=== PATIENT | female | born 1985 | race Caucasian/White ===

== ENCOUNTER 2018-08-04 19:57 | Emergency (ER) | payer OTHER ==
[2018-08-04 20:01] VITALS: BP 158/87; PULSE 66; TEMP 99.1; BMI 51.0
--- NOTE | 2018-08-04 20:03 | PDOC ---
Rapid Medical Evaluation Time Seen by Provider: 08/04/18 19:58 Medical Evaluation: Allergies Allergy/AdvReac Type Severity Reaction Status Date / Time No Known Drug Allergies Allergy Verified 03/07/14 11:42 08/04/18 19:58 Pt has pain in her stomach, mostly in the center. Admits to nausea. Pt has appointment with Dr. Strong for cervix cancer removal on Exam: TTP of the epigastric region Orders: Labs, IV Pt to proceed to ED for further evaluation Discharge Disposition - Diagnosis Abdominal pain - Referrals - Patient Instructions - Post Discharge Activity
[2018-08-04 20:38] LABS: BASO % 0.5 % (0-2.0); EOS % 1.7 % (0-4.5); HEMATOCRIT 38.4 % (32.4-45.2); LYMPH % 30.2 % (8-40); MCH 29.2 pg (25.7-33.7); MCHC 33.7 g/dl (32.0-36.0); MEAN CELL VOLUME 86.8 fl (80-96); MONO % 6.9 % (3.8-10.2); NEUT % 60.7 % (42.8-82.8); PLATELET COUNT 228 K/MM3 (134-434); RBC 4.43 M/mm3 (3.60-5.2); RDW 13.8 % (11.6-15.6); WHITE BLOOD COUNT 6.5 K/mm3 (4.0-10.0)
[2018-08-04] MEDS ORDERED: MAG HYDROX/AL HYDROX/SIMETH -MYLANTA- ORAL SUSPENSION PO ONE (20:39)
[2018-08-04] MEDS ORDERED: FAMOTIDINE 20 MG/50 ML IVPB 20 MG/50 ML MG IVPB ONE ×2 (20:39→21:15)
[2018-08-04] MEDS ORDERED: SODIUM CHLORIDE 1,000 ML IV STA (20:39)
[2018-08-04 20:43] LABS: URINE APPEARANCE CLEAR; URINE BILIRUBIN NEGATIVE (<2.0 mg/dL); URINE COLOR LTYELLOW; URINE GLUCOSE (UA) NEGATIVE (NEGATIVE); URINE KETONE NEGATIVE (NEGATIVE); URINE NITRITE NEGATIVE (NEGATIVE); URINE PROTEIN NEGATIVE (NEGATIVE); URINE UROBILINOGEN NEGATIVE mg/dL (0.2-1.0)
[2018-08-04 20:45] LABS: HCG,QUALITATIVE URINE Negative
--- NOTE | 2018-08-04 20:45 | PDOC ---
Attending Attestation - Resident Resident Name: Lalit Sweet - ED Attending Attestation I have performed the following: I have examined & evaluated the patient, The case was reviewed & discussed with the resident, I agree w/resident's findings & plan, Exceptions are as noted - HPI HPI: 08/04/18 21:47 32 yo female p/w epigastric pain 08/04/18 22:47 - Physicial Exam PE: 08/04/18 21:48 obese 32 yo female w epigastric pain head ncat neck supple lungs cta b/l cvs [id number] abd epigastric pain,no guarding,no rebound ext no e/c/c neuro axox3 no gross focal neuro deficits skin warm and dry - Medical Decision Making 08/04/18 21:49 labs reviewed pt;s symptom improved imp gerd plan f/u with PCP
--- NOTE | 2018-08-04 20:54 | PDOC ---
History of Present Illness - General Chief Complaint: Pain Stated Complaint: ABD PAIN Time Seen by Provider: 08/04/18 19:58 History Source: Patient Exam Limitations: No Limitations - History of Present Illness Initial Comments: 08/04/18 20:53 Patient is a 32F with history of cervical dysplasia, s/p cholecystectomy here today complaining of 4 hours of epigastric abdominal pain that she describes as a burning. Endorses nausea, denies vomiting. Denies fevers, chills, dysuria. Denies lower abdominal pain. Last bowel movement yesterday. Patient states that her pain gets worse when she lays down. Past History - Past Medical History Allergies/Adverse Reactions: Allergies Allergy/AdvReac Type Severity Reaction Status Date / Time No Known Drug Allergies Allergy Verified 08/04/18 20:00 Home Medications: Ambulatory Orders No Home Medications 0 dose .ROUTE UTDICT 03/02/14 Cancer: Yes (CERVICAL) CVA: No COPD: No CHF: No Diabetes: No GI Disorders: No Thyroid Disease: No - Surgical History Cholecystectomy: Yes - Suicide/Smoking/Psychosocial Hx Smoking History: Never smoked Have you smoked in the past 12 months: No Hx Alcohol Use: No Drug/Substance Use Hx: No Substance Use Type: None Review of Systems - Review of Systems Comments:: 08/04/18 20:55 GENERAL/CONSTITUTIONAL: No fever or chills. No weakness. HEAD, EYES, EARS, NOSE AND THROAT: No change in vision. No sore throat. CARDIOVASCULAR: No chest pain or shortness of breath RESPIRATORY: No cough, wheezing, or hemoptysis. GASTROINTESTINAL: +nausea, no vomiting, diarrhea or constipation. GENITOURINARY: No dysuria, frequency, or change in urination. MUSCULOSKELETAL: No joint or muscle swelling or pain. No neck or back pain. SKIN: No rash NEUROLOGIC: No headache, vertigo, loss of consciousness, or change in strength/ sensation. ENDOCRINE: No increased thirst. No abnormal weight change HEMATOLOGIC/LYMPHATIC: No anemia, easy bleeding, or history of blood clots. ALLERGIC/IMMUNOLOGIC: No hives or skin allergy. *Physical Exam - Vital Signs Last Vital Signs Temp Pulse Resp BP Pulse Ox 99.1 F 66 18 158/87 100 08/04/18 19:58 08/04/18 19:58 08/04/18 19:58 08/04/18 19:58 08/04/18 19:58 - Physical Exam Comments: 08/04/18 20:56 GENERAL: Awake, alert, and fully oriented, in no acute distress HEAD: No signs of trauma, normocephalic, atraumatic EYES: PERRLA, EOMI, sclera anicteric, conjunctiva clear ENT: Auricles normal inspection, hearing grossly normal, nares patent, oropharynx clear without exudates. Moist mucosa NECK: Normal ROM, supple, no lymphadenopathy, JVD, or masses LUNGS: No distress, speaks full sentences, clear to auscultation bilaterally HEART: Regular rate and rhythm, normal S1 and S2, no murmurs, rubs or gallops, peripheral pulses normal and equal bilaterally. ABDOMEN: Soft, +LUQ tenderness, normoactive bowel sounds. No guarding, no rebound. No masses EXTREMITIES: Normal inspection, Normal range of motion, no edema. No clubbing or cyanosis. NEUROLOGICAL: Cranial nerves II through XII grossly intact. Normal speech, normal gait, no focal sensorimotor deficits SKIN: Warm, Dry, normal turgor, no rashes or lesions noted. ED Treatment Course - LABORATORY CBC & Chemistry Diagram: 08/04/18 20:23 08/04/18 20:23 - ADDITIONAL ORDERS Additional order review: Laboratory Results 08/04/18 20:32 Urine HCG, Qual Negative 08/04/18 20:23 RBC 4.43 MCV 86.8 MCHC 33.7 RDW 13.8 MPV 8.0 Neutrophils % 60.7 Lymphocytes % 30.2 Monocytes % 6.9 Eosinophils % 1.7 Basophils % 0.5 Medical Decision Making - Medical Decision Making 08/04/18 20:56 Patient is 32F with history of cervical dysplasia and s/p cholecystectomy here today complaining of epigastric burning abdominal pain. Vitals normal and stable. LUQ pain on exam, minor. DDx includes, but is not limited to: gastritis , pancreatitis, UTI. Patient does not have galbladder, surgery is distant, pain is constant. Do not suspect biliary etiology. Will workup with cbc, cmp, lipase , ua, uc. Will treat with fluids, pepcid, maalox. 08/04/18 21:22 Laboratory Tests 08/04/18 08/04/18 08/04/18 20:23 20:23 20:23 WBC 6.5 Hgb 13.0 Plt Count 228 BUN 14 Creatinine 0.6 Lipase 119 Ur Leukocyte Esterase Urine WBC (Auto) Urine RBC (Auto) Urine HCG, Qual 08/04/18 20:32 WBC Hgb Plt Count BUN Creatinine Lipase Ur Leukocyte Esterase 1+ H Urine WBC (Auto) 3 Urine RBC (Auto) 2 Urine HCG, Qual Negative CBC normal. CMP reassuring. Lipase normal. UA clear. Upreg negative. 08/04/18 22:17 Patient reassessed. Feeling better, will discharge home. Given return precautions. *DC/Admit/Observation/Transfer Diagnosis at time of Disposition: Abdominal pain - Discharge Dispostion Disposition: HOME Condition at time of disposition: Good Decision to Admit order: No - Referrals - Patient Instructions Printed Discharge Instructions: DI for Abdominal Pain-Adult Additional Instructions: Por favor, ulisses un seguimiento con hooker mdico de atencin primaria para hooker dolor abdominal. Por favor, regrese si tiene algn sntoma nuevo, que empeora o preocupa, especialmente fiebre, vmitos y aumento del dolor. - Post Discharge Activity
[2018-08-04 21:00] LABS: URINE LEUK ESTERASE 1+ (NEGATIVE)
[2018-08-04 21:01] LABS: EPI CELLS RARE /HPF (FEW); URINE MUCUS RARE
[2018-08-04 21:02] LABS: INR 1.04 (0.83-1.09); PROTHROMBIN TIME (PATIENT) 11.7 SEC (9.7-13.0)
[2018-08-04 21:14] LABS: ALBUMIN 3.7 g/dl (3.4-5.0); ALK PHOS 66 U/L (45-117); ANION GAP 9 MMOL/L (8-16); BILIRUBIN,TOTAL 0.4 mg/dL (0.2-1); BLOOD UREA NITROGEN 14 mg/dL (7-18); CALCIUM 8.9 mg/dL (8.5-10.1); CHLORIDE 108 mmol/L (98-107); CO2 24 mmol/L (21-32); CREATININE 0.6 mg/dL (0.55-1.3); GLUCOSE,RANDOM 97 mg/dL (74-106); SGOT/AST 54 U/L (15-37); SGPT/ALT 148 U/L (13-61); SODIUM 140 mmol/L (136-145); TOT PROT 7.2 g/dl (6.4-8.2)
[2018-08-04] MEDS ORDERED: MAG HYDROX/AL HYDROX/SIMETH 30 ML UNIT-DOSE CUP ONE (21:15)
== END 2018-08-04 22:21 | disposition home or self-care (01) ==
LOC: JER 19:57
PROC: 3E0337Z Introduction of Electrolytic and Water Balance Substance into Peripheral Vein, Percutaneous Approach (ICD-10-PCS; principal; 2018-08-04)
PROC: 3E033GC Introduction of Other Therapeutic Substance into Peripheral Vein, Percutaneous Approach (ICD-10-PCS; 2018-08-04)
DX: K21.9 Gastro-esophageal reflux disease without esophagitis (principal); D06.9 Carcinoma in situ of cervix, unspecified
CPT/HCPCS: 36415; 80053; 81003; 81015; 83690; 84703; 85025; 85610; 87086; 96361; 96365; 99284-25; J7030

== ENCOUNTER 2024-02-13 18:32 | Emergency (ER) | payer OTHER ==
[2024-02-13 18:38] VITALS: BP 130/85; PULSE 98; RESP 18; BMI 36.7
[2024-02-13] MEDS ORDERED: ACETAMINOPHEN INJECTION 100 ML IVPB ONE (19:56)
[2024-02-13] MEDS ORDERED: DEXAMETHASONE SOD PHOSPHATE 10 MG/1 ML VIAL ONE (19:56)
[2024-02-13 19:57] LABS: BASO % 0.6 % (0-2.0); EOS % 2.5 % (0-4.5); HEMATOCRIT 37.7 % (32.4-45.2); HEMOGLOBIN 12.6 GM/dL (10.7-15.3); LYMPH % 20.6 % (8-40); MCH 28.4 pg (25.7-33.7); MCHC 33.3 g/dl (32.0-36.0); MEAN CELL VOLUME 85.3 fl (80-96); MEAN PLT VOLUME 8.1 fl (7.5-11.1); MONO % 7.6 % (3.8-10.2); NEUT % 68.7 % (42.8-82.8); PLATELET COUNT 267 10^3/uL (134-434); RBC 4.43 M/mm3 (3.60-5.2); RDW 14.6 % (11.6-15.6); WHITE BLOOD COUNT 6.6 K/mm3 (4.0-10.0)
[2024-02-13] MEDS: DEXAMETHASONE SOD PHOSPHATE 10 MG/1 ML VIAL PO ONE (20:04)
[2024-02-13] MEDS: SODIUM CHLORIDE 0.9% 500 ML INFUS.BAG IV ONE (20:04)
[2024-02-13] MEDS: ACETAMINOPHEN 1000 MG/100 ML BAG IVPB ONE (20:04)
[2024-02-13 20:20] LABS: THROAT:GRP A STREP NOT DETECTED (NOTDETECTED)
[2024-02-13 20:31] LABS: POTASSIUM 4.9 mmol/L (3.5-5.1)
[2024-02-13 20:32] LABS: CALCIUM 8.6 mg/dL (8.5-10.1)
[2024-02-13 20:33] LABS: ALBUMIN 3.8 g/dl (3.4-5.0); BLOOD UREA NITROGEN 14.5 mg/dL (7-18)
[2024-02-13 20:36] LABS: CREATININE 0.6 mg/dL (0.55-1.3)
[2024-02-13 20:37] LABS: TOT PROT 7.5 g/dl (6.4-8.2)
[2024-02-13 20:38] LABS: BILIRUBIN,TOTAL 0.5 mg/dL (0.2-1)
[2024-02-13] MEDS ORDERED: CALCIUM GLUCONATE 10% - 1,000 MG/10 ML VIAL ONE (23:17)
[2024-02-13 23:40] VITALS: TEMP 98.1
== END 2024-02-13 23:40 | disposition home or self-care (01) ==
LOC: JERFT 18:32 → JER 18:32 → JERFT 23:40
PROC: 3E033NZ Introduction of Analgesics, Hypnotics, Sedatives into Peripheral Vein, Percutaneous Approach (ICD-10-PCS; principal; 2024-02-13)
DX: J02.9 Acute pharyngitis, unspecified (principal); E04.1 Nontoxic single thyroid nodule; R50.9 Fever, unspecified; R22.1 Localized swelling, mass and lump, neck; Z20.822 Contact with and (suspected) exposure to COVID-19
CPT/HCPCS: 0241U-QW; 36415; 70491-TC; 80053; 85025; 87651; 99285-25; J0131; J1100; Q9967